=== PATIENT | female | born 1995 | race Caucasian/White ===

== ENCOUNTER 2018-10-05 14:20 | Emergency (ER) | payer MEDICAID, OTHER ==
[~2018-10-05] VITALS: Ht 154.9 cm; Wt 77.1 kg
[~2018-10-05 14:20] MED LIST: CEPH-443 PO; IBUP-1542 PO
[2018-10-05 14:28] VITALS: BP 115/57; PULSE 93; RESP 18; Ht 154.9 cm; Wt 77.1 kg
[2018-10-05] MEDS ORDERED: ACETAMINOPHEN 500 MG TAB PO STA (15:00)
[2018-10-05] MEDS ORDERED: CEFTRIAXONE 1 GM INJ IM ONE (15:30)
[2018-10-05] MEDS ORDERED: LIDOCAINE 1% (MDV) 20 ML INJ SC ONE (15:30)
== END 2018-10-05 16:07 | disposition home or self-care (01) ==
LOC: FTE 14:20
DX: N39.0 Urinary tract infection, site not specified (principal)
CPT/HCPCS: 81003; 81025; 96372; J0696; Z7502; Z7610